=== PATIENT | female | born 1965 | race Caucasian/White ===

== ENCOUNTER 2019-09-05 08:34 | Emergency (ER) | payer OTHER ==
[2019-09-05 08:44] VITALS: BP 119/51; PULSE 78; TEMP 98; BMI 35.6
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
[2019-09-05] MEDS ORDERED: KETOROLAC TROMETHAMINE 30 MG/1 ML VIAL IM ONE (09:39)
[2019-09-05] MEDS ORDERED: KETOROLAC TROMETHAMINE 30 MG/1 ML VIAL ONE (09:41)
== END 2019-09-05 11:31 | disposition home or self-care (01) ==
LOC: JERFT 08:34
PROC: 3E0233Z Introduction of Anti-inflammatory into Muscle, Percutaneous Approach (ICD-10-PCS; principal; 2019-09-05)
DX: M54.5 Low back pain (principal); M25.571 Pain in right ankle and joints of right foot; E11.9 Type 2 diabetes mellitus without complications; E78.00 Pure hypercholesterolemia, unspecified; I10 Essential (primary) hypertension; F17.210 Nicotine dependence, cigarettes, uncomplicated; V43.92XA Unspecified car occupant injured in collision with other type car in traffic accident, initial encounter; Y93.89 Activity, other specified; Y92.410 Unspecified street and highway as the place of occurrence of the external cause
CPT/HCPCS: 72100-TC-FY; 73610-TC-RT-FY; 73630-TC-RT-FY; 99281-25

== ENCOUNTER 2022-04-19 09:04 | Emergency (ER) | payer OTHER ==
[2022-04-19 09:15] VITALS: BP 104/71; PULSE 91; RESP 17; TEMP 98.1; BMI 36.6
[2022-04-19] MEDS ORDERED: DIPHTH,PERTUSS(ACELL),TET 0.5 ML DISP.SYRIN IM ONE ×2 (10:02→10:23)
== END 2022-04-19 10:36 | disposition home or self-care (01) ==
LOC: JERFT 09:04
PROC: 3E0234Z Introduction of Serum, Toxoid and Vaccine into Muscle, Percutaneous Approach (ICD-10-PCS; principal; 2022-04-19)
DX: S61.431A Puncture wound without foreign body of right hand, initial encounter (principal); W54.0XXA Bitten by dog, initial encounter
CPT/HCPCS: 73130-TC-RT-FY; 90715; 99284-25

== ENCOUNTER 2022-04-21 12:39 | Emergency (ER) | payer OTHER ==
[2022-04-21 12:45] VITALS: BP 130/61; PULSE 76; RESP 17; TEMP 97.7; BMI 36.6
== END 2022-04-21 14:21 | disposition home or self-care (01) ==
LOC: JERFT 12:39
DX: Z48.00 Encounter for change or removal of nonsurgical wound dressing (principal)
CPT/HCPCS: 99281-25